=== PATIENT | female | born 1980 | race Caucasian/White ===

== ENCOUNTER 2017-03-15 14:39 | Emergency (ER) | payer OTHER, MEDICAID ==
[~2017-03-15] VITALS: Ht 177.8 cm; Wt 74.8 kg
--- NOTE | 2017-03-15 14:50 | NUR ---
MAIRA ESPARZA [employer] FOR OTB, C/O FEELING ANXIOUS S/P MARIJUANA AND ADDERALL INGESTION. RR IS EVEN AND UNLABORED WITH NAD NOTED. SKIN IS WARM AND DRY. RESP IS EVEN AND UNLABORED WITH NAD NOTED. AWAITING MD FOR EVAL.
[2017-03-15 15:23] LABS: APPEARANCE,URINE Clear (CLEAR); BILIRUBIN,URINE Negative (NEGATIVE); BLOOD, URINE Moderate Ery/uL (NEGATIVE); COLOR,URINE Yellow (YELLOW); KETONES,URINE Negative (NEGATIVE); LEUKOCYTE ESTERASE ,URINE Negative (NEGATIVE); NITRITE, URINE Negative (NEGATIVE); PROTEIN,URINE Negative (NEGATIVE); UGLUCOSE Negative (NEGATIVE)
[2017-03-15 16:08] LABS: BACTERIA,URINE Few /HPF (None Seen); SQUAMOUS EPITHELIAL CELL,UR Few /HPF (None Seen)
--- NOTE | 2017-03-15 16:17 | NUR ---
Patient discharged [employer] custody in stable condition. Written and verbal after care instructions given. Patient verbalizes understanding of instruction.
[2017-03-15 16:18] VITALS: BP 120/81
== END 2017-03-15 16:19 ==
LOC: ER 14:43
DX: N39.0 Urinary tract infection, site not specified (principal)
CPT/HCPCS: 81001; 84703; 87086; 93005; 99285; A4606; Z7610; 81000-TC